=== PATIENT | female | born 1990 | race Hispanic/Latino ===

== ENCOUNTER 2021-10-21 14:54 | Emergency (ER) | payer OTHER ==
[2021-10-21] MEDS ORDERED: Ondansetron ODT 4 MG TAB ONE (15:38)
[2021-10-21 15:44] LABS: #Basophils 0.1 10x3/uL (0.0-0.2); #Eosinphils 0.7 10x3/uL (0.0-0.5); #Monocytes 0.9 10x3/uL (0.0-1.1); #Neutrophils 10.6 10x3/uL (1.5-8.4); %Basophils 0.5 % (0.0-2.0); %Eosinophils 4.6 % (0.0-6.0); %Lymphocytes 20.1 % (18.0-47.0); %Monocytes 5.8 % (0.0-10.0); %Neutrophils 68.5 % (40.0-75.0); Hemoglobin 12.8 g/dL (12.0-15.5); Mean Corpuscular HGB CONC 35.3 g/dL (32.0-36.0); Mean Corpuscular Volume 87.9 fl (81.6-98.3); Mean Platelet Volume 10.1 fl (7.4-10.4); Platelet Count 295 10x3/uL (150-450); RBC Distribution Width 12.9 % (11.5-14.5); Red Blood Cell (RBC) Count 4.13 10x6/uL (3.90-5.03); White Blood Cell (WBC) Count 15.4 10x3/uL (3.5-10.5)
[2021-10-21 15:51] LABS: Bilirubin Neg (Negative); Blood, Urine Negative (Negative); Clarity Clear (Clear); Glucose, Urine (Dipstick) Normal (Negative); Ketone, Urine Negative (Negative); Leukocyte 25 (Negative); Nitrite Negative (Negative); Protein, Urine (Dipstick) 15 mg/dl (Neg-Trace); pH, Urine 6.5 (5.0-9.0)
[2021-10-21 15:52] LABS: ALT (SGPT) 16 U/L (8-55); AST (SGOT) 14 U/L (5-34); Albumin 3.9 g/dL (3.5-5.0); Alkaline Phosphatase 85 U/L (40-110); Anion Gap 13 mmol/L (10-20); BUN (Urea Nitrogen) 7 mg/dL (7.0-18.7); Bilirubin, Total 0.3 mg/dL (0.2-1.2); Calc. Creatinine Clearance 0 mL/min (70-130); Calcium 9.6 mg/dL (7.8-10.44); Carbon Dioxide 21 mmol/L (22-29); Chloride 106 mmol/L (98-107); Globulin 3.2 g/dL (2.4-3.5); Glucose 93 mg/dL (70-105); Potassium 3.7 mmol/L (3.5-5.1); Protein, Total 7.1 g/dL (6.0-8.3); Sodium 136 mmol/L (136-145)
[2021-10-21 16:18] LABS: Calcium Oxalate Crystals 1+ HPF (None Seen); Mucous/LPF 1+ LPF (<2+); RBC/HPF 0-3 HPF (0-3); WBC/HPF 0-3 HPF (0-3)
[2021-10-21 16:19] LABS: Bacteria/HPF Rare-Few HPF (None Seen)
== END 2021-10-21 17:07 | disposition home or self-care (01) ==
LOC: CSHERS 14:54
DX: O99.891 Other specified diseases and conditions complicating pregnancy (principal); R10.2 Pelvic and perineal pain; O21.9 Vomiting of pregnancy, unspecified; Z3A.12 12 weeks gestation of pregnancy
CPT/HCPCS: 36415; 80053; 81003; 81015; 84702; 85025; 86900; 86901; 87086; Q0162

== ENCOUNTER 2021-11-06 10:52 | Emergency (ER) | payer OTHER, SELFPAY ==
[2021-11-06 11:39] LABS: Bilirubin Neg (Negative); Blood, Urine 10 (Negative); Clarity Slightly Cloudy (Clear); Glucose, Urine (Dipstick) Normal (Negative); Ketone, Urine 5 mg/dL (Negative); Leukocyte 500 (Negative); Nitrite Negative (Negative); Protein, Urine (Dipstick) 15 mg/dl (Neg-Trace)
[2021-11-06 11:49] LABS: RBC/HPF 0-3 HPF (0-3)
[2021-11-06 11:55] LABS: Bacteria/HPF 3+ HPF (None Seen); Mucous/LPF 3+ LPF (<2+)
== END 2021-11-06 12:30 | disposition home or self-care (01) ==
LOC: CSHERS 10:52
DX: J06.9 Acute upper respiratory infection, unspecified (principal); N39.0 Urinary tract infection, site not specified; Z20.822 Contact with and (suspected) exposure to COVID-19
CPT/HCPCS: 81003; 81015; 87086; 87804; 99283; U0003; U0005

== ENCOUNTER 2021-11-25 20:26 | Emergency (ER) | payer OTHER, SELFPAY ==
[2021-11-25 23:10] LABS: #Basophils 0.1 10x3/uL (0.0-0.2); #Eosinphils 0.6 10x3/uL (0.0-0.5); #Monocytes 0.8 10x3/uL (0.0-1.1); %Basophils 0.4 % (0.0-2.0); %Eosinophils 4.2 % (0.0-6.0); %Lymphocytes 22.4 % (18.0-47.0); %Monocytes 5.6 % (0.0-10.0); %Neutrophils 66.8 % (40.0-75.0); Hemoglobin 12.4 g/dL (12.0-15.5); Mean Corpuscular HGB CONC 34.7 g/dL (32.0-36.0); Mean Corpuscular Hemoglobin 30.6 pg (27.0-33.0); Mean Corpuscular Volume 88.1 fl (81.6-98.3); Mean Platelet Volume 10.2 fl (7.4-10.4); Platelet Count 293 10x3/uL (150-450); Red Blood Cell (RBC) Count 4.05 10x6/uL (3.90-5.03); White Blood Cell (WBC) Count 13.5 10x3/uL (3.5-10.5)
[2021-11-25] MEDS ORDERED: diphenhydrAMINE 25 MG CAP ONE (23:18)
[2021-11-25 23:22] LABS: ALT (SGPT) 6 U/L (8-55); AST (SGOT) 14 U/L (5-34); Albumin 3.7 g/dL (3.5-5.0); Alkaline Phosphatase 58 U/L (40-110); Anion Gap 10 mmol/L (10-20); BUN (Urea Nitrogen) 7 mg/dL (7.0-18.7); Bilirubin, Direct 0.1 mg/dL (0.1-0.3); Bilirubin, Total 0.2 mg/dL (0.2-1.2); Calc. Creatinine Clearance 0 mL/min (70-130); Calcium 9.3 mg/dL (7.8-10.44); Carbon Dioxide 24 mmol/L (22-29); Chloride 106 mmol/L (98-107); Estimated GFR 136; Globulin 2.7 g/dL (2.4-3.5); Glucose 82 mg/dL (70-105); Potassium 3.9 mmol/L (3.5-5.1); Protein, Total 6.4 g/dL (6.0-8.3); Sodium 136 mmol/L (136-145)
[2021-11-25 23:33] LABS: Bilirubin Neg (Negative); Blood, Urine Negative (Negative); Clarity Cloudy (Clear); Glucose, Urine (Dipstick) Normal (Negative); Ketone, Urine Negative (Negative); Leukocyte Negative (Negative); Nitrite Negative (Negative); Protein, Urine (Dipstick) Negative (Neg-Trace); Specific Gravity, Urine 1.015 (1.002-1.036)
== END 2021-11-26 00:30 | disposition home or self-care (01) ==
LOC: CSHERS 20:26
DX: O99.712 Diseases of the skin and subcutaneous tissue complicating pregnancy, second trimester (principal); L29.9 Pruritus, unspecified; Z3A.16 16 weeks gestation of pregnancy
CPT/HCPCS: 80053; 81003; 82248; 85025; 99283

== ENCOUNTER 2022-03-07 09:56 | Day surgery (SDC) | payer SELFPAY ==
[2022-03-07] MEDS ORDERED: hydrALAZINE 20 MG/ML VIAL SLOW IVP PRN (11:14)
[2022-03-07] MEDS ORDERED: Lactated Ringer's 1,000 ML IV SCH (11:30)
[2022-03-07 12:24] LABS: Bilirubin Neg (Negative); Blood, Urine Negative (Negative); Clarity Clear (Clear); Glucose, Urine (Dipstick) Normal (Negative); Ketone, Urine Negative (Negative); Leukocyte Negative (Negative); Nitrite Negative (Negative); Protein, Urine (Dipstick) Negative (Neg-Trace); Specific Gravity, Urine 1.005 (1.005-1.030); Urobilinogen Normal mg/dL (Less than 2)
[2022-03-07 12:29] LABS: Urine Culture Reflex No No
[2022-03-07 12:45] VITALS: BMI 27.9
[2022-03-07 12:47] LABS: Bacteria/HPF 1+ HPF (None Seen); RBC/HPF 0-3 HPF (0-3); Squamous Epithelial 0-3 HPF (0-3); WBC/HPF 0-3 HPF (0-3)
[2022-03-07 13:27] LABS: Fetal Fibronectin POSITIVE (Negative)
[2022-03-07 13:28] LABS: FFN Internal QC Analyzer PASS (PASS); FFN Internal QC Cassette PASS (PASS)
== END 2022-03-07 15:00 | disposition home or self-care (01) ==
LOC: CSHLD/OP 09:56
PROVIDERS: ATTEND Obstetrics & Gynecology
DX: O47.1 False labor at or after 37 completed weeks of gestation (principal); O36.8130 Decreased fetal movements, third trimester, not applicable or unspecified; O26.893 Other specified pregnancy related conditions, third trimester; R30.0 Dysuria; Z3A.31 31 weeks gestation of pregnancy
CPT/HCPCS: 76819; 81001; 82731; 87086; 87480; 87510; 87660

== ENCOUNTER 2022-04-27 08:19 | Day surgery (SDC) | payer MEDICAID ==
[2022-04-27 08:38] VITALS: BMI 26.3
[2022-04-27] MEDS ORDERED: hydrALAZINE 20 MG/ML VIAL SLOW IVP PRN (08:59)
== END 2022-04-27 11:20 | disposition home or self-care (01) ==
LOC: CSHLD/OP 08:19
PROVIDERS: ATTEND Student in an Organized Health Care Education/Training Program
DX: O47.1 False labor at or after 37 completed weeks of gestation (principal); O43.123 Velamentous insertion of umbilical cord, third trimester; Z3A.38 38 weeks gestation of pregnancy
CPT/HCPCS: 99283

== ENCOUNTER 2022-04-29 05:17 | Inpatient (IN) | payer MEDICAID, OTHER, SELFPAY ==
[2022-04-29 05:41] VITALS: BMI 26.2
[2022-04-29] MEDS ORDERED: hydrALAZINE 20 MG/ML VIAL SLOW IVP PRN ×3 (05:59→12:48)
[2022-04-29] MEDS ORDERED: Methylergonovine 0.2 MG/ML VIAL IM PRN ×2 (06:17→12:48)
[2022-04-29] MEDS ORDERED: Misoprostol 200 MCG TAB PR PRN (06:17)
[2022-04-29] MEDS ORDERED: Ondansetron PF 4 MG/2 ML Vial IVP PRN ×2 (06:17→08:05)
[2022-04-29] MEDS ORDERED: Carboprost 250 MCG/ML AMP IM PRN (06:17)
[2022-04-29] MEDS ORDERED: Lidocaine 1% (PF) 30 ML VIAL SC PRN (06:17)
[2022-04-29] MEDS ORDERED: Promethazine HCl 25 MG/ML VIAL IM PRN ×2 (06:17→08:05)
[2022-04-29] MEDS ORDERED: Ibuprofen 800 MG TAB PO PRN (06:17)
[2022-04-29] MEDS ORDERED: NS w/ Oxytocin 30 units 500 ML IV SCH (06:30)
[2022-04-29] MEDS ORDERED: Lactated Ringer's 1,000 ML IV SCH (06:30)
[2022-04-29 06:57] LABS: Hemoglobin 12.5 g/dL (12.0-15.5); Mean Corpuscular Volume 85.8 fl (81.6-98.3); Mean Platelet Volume 10.4 fl (7.4-10.4); Platelet Count 247 10x3/uL (150-450); RBC Distribution Width 14.2 % (11.5-14.5); Red Blood Cell (RBC) Count 4.16 10x6/uL (3.90-5.03); White Blood Cell (WBC) Count 11.1 10x3/uL (3.5-10.5)
[2022-04-29 07:20] LABS: HBSAg Index 0.15 S/CO (0-0.99); Hep B Surf Ag Non-Reactive S/CO (NonReactive)
[2022-04-29 07:21] LABS: Syphilis Antibody Nonreactive (Nonreactive); Syphilis Antibody Index 0.03 S/CO (<1.00 Non-Reactive)
[2022-04-29] MEDS ORDERED: Fentanyl 2 mcg/Bup 0.1% Cadd 100 ML ONE (07:38)
[2022-04-29] MEDS ORDERED: NS w/ Oxytocin 30 units 500 ML ONE (07:38)
[2022-04-29] MEDS ORDERED: Acetaminophen 325 MG TAB PO PRN (08:05)
[2022-04-29] MEDS ORDERED: Naloxone HCl 0.4 mg/ml Vial IVP PRN ×2 (08:05)
[2022-04-29] MEDS ORDERED: Lactated Ringer's 500 ML IV PRN (08:05)
[2022-04-29] MEDS ORDERED: Moisturizing Cream (Eucerin) 113 GM JAR TOP PRN (08:05)
[2022-04-29] MEDS ORDERED: diphenhydrAMINE 50 MG/ML VIAL IVP PRN (08:05)
[2022-04-29] MEDS ORDERED: ePHEDrine Sulfate 50 MG/10 ML VIAL SLOW IVP PRN (08:05)
[2022-04-29] MEDS ORDERED: Fentanyl 2 mcg/Bupivacaine 0.1% Cassette 100 ML EPIDURAL SCH (08:15)
[2022-04-29] MEDS ORDERED: Communication Order-Pharmacy FS SCH (08:15)
[2022-04-29 09:12] LABS: SARS-CoV-2 NAA Rapid Test Not Detected (NotDetected)
[2022-04-29] MEDS ORDERED: Misoprostol 200 MCG TAB VAG PRN (12:48)
[2022-04-29] MEDS ORDERED: Bisacodyl 10 MG SUPP PR PRN (12:48)
[2022-04-29] MEDS ORDERED: Lanolin Ointment 7 GM TUBE TOP PRN (12:48)
[2022-04-29] MEDS ORDERED: Acetaminophen 500 MG TAB PO PRN (12:48)
[2022-04-29] MEDS ORDERED: Milk Of Magnesia 30 ML UDCUP PO PRN (12:48)
[2022-04-29] MEDS ORDERED: Boostrix 0.5 ML (Tdap) VIAL (>/=7 yrs of age) IM ONE (12:48)
[2022-04-29] MEDS ORDERED: Bupivacaine 0.25% HCL 30 ML VIAL ONE (13:48)
[2022-04-29] MEDS: Ibuprofen 800 MG TAB PO SCH ×2 (14:46→21:27)
[2022-04-29] MEDS: Ferrous Sulfate 325 MG TAB PO SCH (18:43)
[2022-04-29] MEDS: Docusate 100 MG CAP PO SCH (21:27)
[2022-04-30] MEDS: Ibuprofen 800 MG TAB PO SCH ×2 (06:06→13:32)
[2022-04-30] MEDS: Ferrous Sulfate 325 MG TAB PO SCH (08:11)
[2022-04-30] MEDS: Docusate 100 MG CAP PO SCH (08:16)
[2022-04-30] MEDS ORDERED: Prenatal Vitamin 1 TAB PO SCH (09:00)
[2022-04-30 12:32] VITALS: BP 106/62; TEMP 98.1
== END 2022-04-30 14:30 | disposition home or self-care (01) | DRG 807 ==
LOC: CSHLD/OP 05:17 → CSHLD 05:53 → CSHPP 13:40
PROVIDERS: ADMIT Family Medicine; ATTEND Family Medicine
PROC: 10E0XZZ Delivery of Products of Conception, External Approach (ICD-10-PCS; principal; 2022-04-29)
DX: O43.123 Velamentous insertion of umbilical cord, third trimester (principal); Z37.0 Single live birth; Z20.822 Contact with and (suspected) exposure to COVID-19; Z3A.38 38 weeks gestation of pregnancy; Z79.899 Other long term (current) drug therapy; O32.6XX0 Maternal care for compound presentation, not applicable or unspecified
CPT/HCPCS: 85027; 86780; 86850; 86900; 86901; 87340; J2590; J7120; S0020; U0002